=== PATIENT | female | born 1975 | race African-American/Black ===

== ENCOUNTER 2016-11-26 15:33 | Observation (INO) ==
[2016-11-26 17:00] LABS: Free T4 (Free Thyroxine) 1.17 NG/DL (0.76-1.46); Magnesium 2.1 MG/DL (1.8-2.4)
[2016-11-26 17:07] LABS: Alanine Aminotransferase 28 U/L (13-56); Albumin 4.6 G/DL (3.4-5.0); Alkaline Phosphatase 89 U/L (45-117); Aspartate Amino Transferase 19 U/L (0-37); Bilirubin,Total < 0.39 MG/DL (0.2-1.0); Blood Urea Nitrogen 10 MG/DL (7-18); Calcium 9.4 MG/DL (8.5-10.1); Glucose 79 MG/DL (74-106); Osmolality,Calculated 276.4 MOS/KG (273-304); Potassium 3.8 MMOL/L (3.5-5.1); Sodium 140 MMOL/L (136-145); Total Protein 8.3 G/DL (6.4-8.3); Troponin I Only < 0.015 NG/ML (0.00-0.045)
[2016-11-26 17:10] LABS: Basophils % 0.5 % (0.0-0.8); Eosinophils # 0.1 10*3/uL (0.0-0.87); Eosinophils % 0.7 % (0.00-10.9); Hematocrit 41.8 VOL% (35.7-47.0); Hemoglobin 12.9 GM/DL (12.0-16.0); Immature Granulocytes % 0.1 %; Immature Granulocytes Absolute 0.01 #; Lymphocytes # 2.9 10*3/uL (1.4-4.0); Lymphocytes % 34.4 % (21.3-54.2); Mean Corpuscular HGB Conc 30.9 GM/DL (32-36); Mean Corpuscular Hemoglobin 23 PG (27-34); Mean Corpuscular Volume 73.3 FL (87-102); Mean Platelet Volume 12.1 FL (9.6-12.0); Monocytes # 0.5 10*3/uL (0.11-0.8); Monocytes % 5.9 % (1.7-12.7); Neutrophils % 58.4 % (38.7-73.9); Platelet Count 338 T/CUMM (130-400); Red Cell Distribution Width 14.3 % (9.3-17.3); White Blood Count 8.5 T/CUMM (4-12)
--- NOTE | 2016-11-26 17:34 | XRay Report ---
XR chest 2V Indication: Palpitations. Shortness of breath. Chest 2 views: The heart size and mediastinal contour are normal. The lungs and pleural spaces are clear. Bones are unremarkable. Impression: Negative chest. PROCEDURE INTERPRETED AT [facility] DEPARTMENT OF RADIOLOGY Final Report Signed by: Lopez Espinal M.D.
[2016-11-26] MEDS ORDERED: SODIUM CHLORIDE 0.9% 1,000 ML IV STA (17:46)
[2016-11-26 18:45] LABS: D-Dimer 1.6 MG/L FEU; PT Patient Result 10.6 SECS; Partial Thromboplastin Time 21.6 SECS (0-40)
--- NOTE | 2016-11-26 19:34 | Emergency Department Note ---
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 Pt had recent similar episodea and wore a holter monitor. Mode of Arrival: Ambulatory Limitations: No Limitations Source: Patient Time Seen by Provider: 11/26/16 17:00 - History of Present Illness HPI Narrative: The patient complains of palpitations and shortness of breath for the past week or so. She saw a nurse practitioner for this and had a Holter monitor done. This was taken off and red yesterday by Dr. Heck. As far as I can tell there were no really significant findings. She had some PVCs but these did not appear to be associated with her symptoms. Today she states that the palpitations have become more frequent and "heavier." She is still having shortness of breath, sometimes associated with palpitations, sometimes not. She denies any chest pain. She denies any fever, cough or other recent illness. Date of Last Menstrual Period: 1 wk ago Allergies/Adverse Reactions: Allergies Allergy/AdvReac Type Severity Reaction Status Date / Time tramadol [From Ultram] Allergy ITCHING Verified 11/26/16 15:37 Home Medications: Home Medications Medication Instructions Recorded Confirmed Type Aspirin EC Tab 81 mg PO QPM 11/26/16 11/26/16 History Noreth-Ethinyl Estradiol/Iron 1 tablet PO QPM 11/26/16 11/26/16 History [L[place]olis Fe Chew Tab] Zolpidem [Ambien] 2.5 - 5 mg PO BEDTIME PRN 11/26/16 11/26/16 History Review of System - Review of System 12 point system: reviewed and no additional remarkable complaints except as stated - Review of System Constitutional: Absent: fever Head/Ears/Nose/Throat: Absent: nasal drainage Respiratory: Absent: cough Cardiovascular: Present: palpitations. Absent: chest pain, dyspnea on exertion , orthopnea, edema Gastrointestinal: Absent: abdominal pain, nausea, vomiting Genitourinary female: Absent: dysuria Musculoskeletal: Absent: back pain Medical,Surgical,& Family Hx - Medical History Medical History: noncontributory - Surgical History HEENT Surgeries: Surgical HX of: Tonsilectomy & Adenoidectomy Reproductive Surgeries: Surgical HX of;: Tubal Ligation - Family History Family History: noncontributory - Social History Smoking Status: Never smoker Exam Physical Examination: GENERAL: Alert. No acute distress. HEENT: Normocephalic and atraumatic. There is no nasal drainage. No pharyngeal erythema or exudate. NECK: Normal inspection. Supple. No lymphadenopathy or meningismus. LUNGS: No respiratory distress. Clear to auscultation bilaterally, no wheezes, rales or rhonchi. HEART: Regular rate. Mostly regular rhythm with occasional ectopic beat. ABDOMEN: Soft, nontender and nondistended with normoactive bowel sounds. BACK: Normal inspection. SKIN: Color normal. Warm and dry. EXTREMITIES: Nontender. Normal range of motion. No pedal edema. NEUROLOGICAL/PSYCHIATRIC: Alert and oriented 3 with normal mood and affect. Cranial nerves normal. No motor or sensory deficit. Vital Signs: Vital Signs Temperature 98.7 F 11/26/16 17:15 Pulse Rate 98 H 11/26/16 17:15 Respiratory Rate 18 11/26/16 17:15 Blood Pressure 166/91 11/26/16 17:15 O2 Sat by Pulse Oximetry 99 11/26/16 16:30 Course - Reevaluation(s) Reevaluation #1: The patient continues to have palpitations in the emergency room. They are clearly linked to PVCs on the monitor. She is having approximately 15 PVCs per minute and while I was at the bedside, she had a run of bigeminy as well. I have discussed the patient with Dr. Heck and will admit to him for observation and further evaluation. Time: 19:36 Results - Labs CBC & BMP: 11/26/16 17:02 11/26/16 16:25 Lab Results: I have reviewed the patients labs Labs: Laboratory Tests 11/26/16 11/26/16 11/26/16 16:25 16:25 16:25 INR 1.0 D-Dimer, Quantitative 1.6 Troponin I < 0.015 Free T4 1.17 TSH 3rd Generation 1.360 - Impressions Chest x-ray shows no acute abnormality. EKG shows a sinus tachycardia at 102. Disposition Clinical Impression: Palpitations, PVCs (premature ventricular contractions) Case discussed with: patient, patient's family Disposition: Still a Patient Condition: Stable Time of Disposition: 19:45
[2016-11-26] MEDS ORDERED: ONDANSETRON 4 MG/2 ML VIAL IV PRN (20:24)
[2016-11-26] MEDS ORDERED: MAGNESIUM SULF RIDER 2 GM in PREMIX 1 EACH IV PRN (20:24)
[2016-11-26] MEDS ORDERED: CLORAZEPATE 7.5 MG TABLET PO STA (20:24)
[2016-11-26] MEDS ORDERED: METOPROLOL TARTRATE 25 MG TABLET PO STA (20:24)
[2016-11-26] MEDS ORDERED: MAGNESIUM SULF RIDER 4 GM in PREMIX 1 EACH IV PRN (20:24)
[2016-11-26] MEDS: METOPROLOL TARTRATE 25 MG TABLET PO SCH (22:09)
[2016-11-26] MEDS: CLORAZEPATE 7.5 MG TABLET PO SCH (22:11)
[2016-11-27] MEDS: SODIUM CHLORIDE 0.45% 1,000 ML IV SCH ×2 (00:03→08:08)
--- NOTE | 2016-11-27 07:51 | Cardiology History & Physical ---
Assessment and Plan - Time spent with patient Time spent with patient: Greater than 30 minutes (1) Symptomatic PVCs Status: Acute Assessment and plan: She does not have obvious structural heart disease There is no metabolic cause for PVCs These PVCs are bothersome to her Thus, Dr. Pena and I decided last night to give a trial of metoprolol 25 mg p.o. twice daily The patient notes she has had no side effects she thinks the palpitations are better with the metoprolol. Patient notes her blood pressure is better. She does use the Tranxene but feels she does not need to use it long-term. We will not send home with his medication. She had discussed considering using an SSRI but we decided not to. Cardiac isoenzymes are negative. I will discharge the patient today Will follow-up in about 4-6 weeks We will have the patient come for an echo/Doppler-- evaluate her murmur and for structural heart disease in about a week or 2 at [facility]. I discussed with the patient that we have other options of treatment if this is not controlled it long-term.[Consider acebutolol] I discussed the above plan with the patient. She agrees with the plan. I answered all of her questions. She may return to work tomorrow. Current Visit: Yes (2) Dyspnea Status: Acute Current Visit: Yes (3) Murmur Status: Acute Current Visit: Yes (4) Hypertension Status: Acute Current Visit: Yes (5) PVCs (premature ventricular contractions) Status: Acute Current Visit: Yes (6) Palpitations Status: Acute Current Visit: Yes History of Present Illness Chief complaint: "I have had a lot of palpitations with shortness of breath" History of present illness: Ms. Cooney is a 41 year old female PCP: Dr. 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 She been in relatively good health. However recently she noticed some palpitations about a week. She saw Ms. Shayy Huff. She evaluated her. She had a Holter placed. Holter showed PVCs but they were not necessarily related to the her symptoms of palpitations. However over the weekend palpitations became worse. There is associated shortness breath. Thus , she came to emergency room. She saw Dr. Pena. He noted on monitor that she would have as many as 15 PVCs per minute. It was associated with palpitations shortness breath. She would have runs of ventricular bigeminy. They did bother her. She has had no chest pain. Her cardiac isoenzymes negative. EKG showed no ischemia. She was anxious. She was admitted for overnight observation to start beta-monica to minimize her symptoms. While using a Holter her palpitations were very minimal. However the emergency room, monitoring, they were fairly severe. No orthopnea, PND, edema, palpitations, syncope, cough, wheezing, or phlegm. No diabetes, kidney disease, lung disease Does not smoke cigarettes or drink alcohol No family history of CAD . There is a family history diabetes. Sph : Yes, occasionally, yes, yes and yes. [employer]. Review of systems: Uses reading glasses. Has had hypertension going up lately. There is a family history of it. She was thinking she may need some treatment for it. She notes that overnight on the new dose of metoprolol her blood pressure has been better. Her does still snore and it makes it difficult to sleep. Thus, she takes Ambien at night. She is not particularly anxious or irritable. Home Medications Medication Instructions Recorded Confirmed Type Aspirin EC Tab 81 mg PO QPM 11/26/16 11/26/16 History Noreth-Ethinyl Estradiol/Iron 1 tablet PO QPM 11/26/16 11/26/16 History [Layolis Fe Chew Tab] Zolpidem [Ambien] 2.5 - 5 mg PO BEDTIME PRN 11/26/16 11/26/16 History Metoprolol Tartrate Tab [Lopressor 25 mg PO BID #60 tablet 11/27/16 Rx Tab] Allergies Allergy/AdvReac Type Severity Reaction Status Date / Time tramadol [From Ultram] Allergy ITCHING Verified 11/26/16 15:37 12 point system: reviewed and no additional remarkable complaints except as stated (A 12 point review of systems is negative except for as mentioned in HPI. ) Medical,Surgical,& Family Hx - Surgical History Cardiac Surgeries: Patient Denies: Cardiac Catheterization Thoracic Surgeries: Patient denies;: Organ Transplant, Lobectomy Neurologic Surgeries: Patient denies: Neurologic Surgery HEENT Surgeries: Surgical HX of: Tonsilectomy & Adenoidectomy Abdominal Surgeries: Patient denies: Abdominal Surgery Reproductive Surgeries: Surgical HX of;: Tubal Ligation - Family History Family History: Denies;: Family Anesthesia Reaction, Family Cancer, Family Diabetes, Family Heart Disease, Family Hematology, Family Hypertension, Family Psychiatric Problems, Family Stroke, Additional Family History - Social History Smoking Status: Never smoker Frequency of Alcohol Use: None Type of Drug Use: None Marital Status: Lives With:: Spouse Functional capacity: independent ambulation Cardiology Physical Exam - Constitutional Vitals: Vital Signs Temp Pulse Resp BP Pulse Ox 97.6 F 75 18 119/69 100 11/27/16 04:05 11/27/16 00:00 11/27/16 06:05 11/27/16 04:05 11/27/16 04:05 Intake and Output 11/26/16 11/26/16 11/27/16 15:59 23:59 07:59 Intake Total 240 / 1240 0 / 0 Balance 240 / 1240 0 / 0 Intake: Oral 240 / 240 0 / 0 Other: Voiding Method Toilet Toilet # Voids 1 1 Weight 59.874 kg 59.874 kg Patient Weight 11/27/16 23:59 Weight 59.874 kg Exam: HEENT: Pupils equal, reactive to light and accommodation Neck: NoJVD or bruit Lungs clear to auscultation Heart: Regular rhythm rate with normal S1 and S2. Apical S4, 2/6 systolic ejection murmur along left lower sternal border. Abdomen: No hepatosplenomegaly Spine/extremities: No clubbing, cyanosis, or edema Neuro: Nonfocal Psych: No depression or anxiety Femoral pulses were 4+. Foot pulses were 3+. Result/EKG - Labs CBC & BMP: 11/26/16 17:02 11/26/16 16:25 Lab Results: I have reviewed the past 24 hour labs - Diagnostic Findings Procedure: Chest x-ray: report reviewed by me - EKG EKG results: interpreted by me Quality Measures - Stroke Symptom Onset Unknown: No
[2016-11-27] MEDS: CLORAZEPATE 7.5 MG TABLET PO SCH (09:16)
[2016-11-27] MEDS: METOPROLOL TARTRATE 25 MG TABLET PO SCH (09:16)
--- NOTE | 2016-11-27 09:52 | EKG Report ---
Stationary ECG Study [facility] ER Test Date: 11/26/2016 3:42:22 PM Pat Name: ANIRUDH WALLER Department: Room: 272 Gender: F Installment Agent: Aquiles Webster : 1975 Requested by: Fabián Ji Order Number: [id number] Reading MD: ANDREE BARNES Intervals [place] Rate: 102 P: 80 UT: 155 QRS: 78 QRSD: 79 T: 66 QT: 353 QTc: 412 Interpretive Statements SINUS TACHYCARDIA Electronically Signed On 11-28-16 16:39:52 CDT by ANDREE BARNES [email or web address]
--- NOTE | 2016-11-27 09:53 | EKG Report ---
Stationary ECG Study [facility] Test Date: 11/27/2016 8:03:01 AM Pat Name: ANIRUDH WALLER Department: Room: 272 Gender: F Reconciliation Accountant: MIGUELITO : 1975 Requested by: Ab Baugh Order Number: [id number] Reading MD: ANDREE BARNES Intervals [place] Rate: 68 P: 68 [place]: 157 QRS: 79 QRSD: 76 T: 69 QT: 384 QTc: 401 Interpretive Statements SINUS RHYTHM I Electronically Signed On 11-28-16 16:49:37 CDT by ANDREE BARNES [email or web address]
--- NOTE | 2016-11-27 15:11 | Discharge Summary ---
Hospital Course - Hospital Course Hospital Course: The patient was admitted for worsening palpitations associated with PVCs. There is also shortness of breath. He was anxious. She was begun on metoprolol. She was watched overnight. Cardiac isoenzymes negative. EKG showed resolution of the arrhythmia. Blood pressure is now normal. She is up and about. She is doing well. She does not feel she is so anxious that she needs Tranxene regularly. Consider use of sertraline but she is not anxious, does not have insomnia, etc. She is well. She is to be discharged home. She feels dramatically better since starting the metoprolol. He will come for an outpatient echo/Doppler sometime later in the week at [facility]. Will see her back in follow-up, consider a regular treadmill or is merely following her symptoms. She is to keep up with the frequency and severity of her palpitations on the metoprolol. I could try another medication, such as Sectral, as needed. I will give her a month with 3 refills of the metoprolol. However, ultimately she would need to have it goes with [facility], as e described. I will see her back in 4-6 weeks or sooner if needed. She voiced understanding and agrees with plan. - Time spent with patient Time with patient DS: Greater than 30 minutes Diagnosis - Discharge Diagnosis (1) Hypertension Status: Acute (2) Anxiety as acute reaction to gross stress Status: Acute (3) PVCs (premature ventricular contractions) Status: Acute (4) Palpitations Status: Acute Specialty Discharge - Follow Up or Referrals Follow up with: Iván Heck MD [Physician] - (FOLLOW UP FOR 4-6 WEEKS--AN APPT WITH ME. NEEDS OUTPATIENT ECHO FOR 1- 2 WEEKS AFTER DISCHARGE--TO BE DONE AT [facility], . ) Discharge Plan - Discharge Data Disposition: Disch To Home/Self Care Condition at Discharge: Stable Discharge Diet: heart healthy, low fat, low cholesterol Activity: resume usual activities as tolerated Hygiene: no restrictions Weight Bearing at Discharge: full weight bearing Driving: no restrictions - Discharge Medications New Metoprolol Tartrate Tab [Lopressor Tab] 25 mg PO BID #60 tablet Continue Aspirin EC Tab 81 mg PO QPM Zolpidem [Ambien] 2.5 - 5 mg PO BEDTIME PRN PRN Reason: Insomnia Noreth-Ethinyl Estradiol/Iron [L[place]olis Fe Chew Tab] 1 tablet PO QPM - Follow Up or Referral Follow Up: Iván Heck MD [Physician] - (FOLLOW UP FOR 4-6 WEEKS. NEEDS OUTPATIENT ECHO FOR 1-2 AFTER DISCHARGE. ) - Forms/Instructions Additional Discharge Instructions: Keep up with the number and frequency and duration of episodes he cellulitis palpitations from now until he cellulites each other again. Check your blood pressure and pulse twice a day, record it, and call it to us in 2-4 weeks or bring it to the next clinic appointment for me to review. Exam - Constitutional Vitals: Period Temp Pulse Resp BP Sys/Castillo Pulse Ox Last 24 Hr 97.6 F-98.8 F 75-94 14-20 115-149/69-90 98-100 Exam: HEENT: Pupils equal, reactive to light and accommodation Neck: NoJVD or bruit Lungs clear to auscultation Heart: Regular rhythm rate with normal S1 and S2. Apical S4, 2/6 systolic ejection murmur along left lower sternal border. Abdomen: No hepatosplenomegaly Spine/extremities: No clubbing, cyanosis, or edema Neuro: Nonfocal Psych: No depression or anxiety Discharge Results Labs on day of discharge: Labs from last 24 hours 11/27/16 07:52 Troponin I < 0.015 DS: Provider Date of admission: 11/26/16 19:47 Primary care physician: Nonstaff Physician Attending physician on admission: Iván Heck MD Discharging clinician: Iván Heck MD
[2016-11-27 16:38] VITALS: BP 111/67
== END 2016-11-27 18:55 | disposition home or self-care (01) ==
LOC: N.EDINP 15:33 → N.ED 15:33 → N.TELES 20:13
PROVIDERS: ADMIT Internal Medicine Cardiovascular Disease; ATTEND Internal Medicine Cardiovascular Disease